=== PATIENT | female | born 1950 | race Caucasian/White ===

== ENCOUNTER 2022-11-11 18:44 | Emergency (ER) | payer MEDICARE, OTHER, SELFPAY ==
[2022-11-11 18:50] VITALS: BP 128/67; PULSE 75; RESP 18; TEMP 37; O2SAT 96; BMI 25.7
--- NOTE | 2022-11-11 19:05 | DI.CT.S_ITS ---
PROCEDURE: CT FACIAL BONES WO CON INDICATIONS: fall, trauma, head, facial, chest injury TECHNIQUE: Noncontrast 2.5 mm thick axial images acquired from the mandible through the frontal sinuses, with coronal and sagittal reformatting. For radiation dose reduction, the following was used: automated exposure control, adjustment of mA and/or kV according to patient size. COMPARISON: [facility], CT, CT CERVICAL SPINE WO CON, 11/11/2022, 19:11. [facility], CT, CT HEAD/BRAIN WO CON, 11/11/2022, 19:11. FINDINGS: Image quality: Excellent. Bones and teeth: Orbital pillai are intact. Sinus pillai show no fracture or deformity. Nasal bones and septum are intact. Visualized portions of the mandible demonstrate no fractures or subluxation. Zygomatic arches are intact. Pterygoid plates are intact. Visualized portions of the skull base and auditory canals are intact. Sinuses: Mild mucosal thickening is seen within the ethmoid air cells and within the maxillary sinuses. No abnormal fluid is seen within the mastoid air cells. Soft tissues: No significant soft tissue abnormality is identified. Vascular: Visualized vascular structures appear normal in the absence of contrast. Bony vascular foramina and canals are intact. IMPRESSION: No displaced fracture is seen. Dictated by: Sanjiv Keller M.D. on 11/11/2022 at 18:32 Approved by: Sanjiv Keller M.D. on 11/11/2022 at 18:33
--- NOTE | 2022-11-11 19:06 | DI.CT.S_ITS ---
PROCEDURE: CT CERVICAL SPINE WO CON INDICATIONS: trauma, fall down stairs, on eliquis TECHNIQUE: Noncontrast 3 mm thick sections acquired from the skull base to the T4 level. Sagittal and coronal reformats were then constructed. For radiation dose reduction, the following was used: automated exposure control, adjustment of mA and/or kV according to patient size. COMPARISON: [facility], CT, CT FACIAL BONES WO CON, 11/11/2022, 19:11. [facility], CT, CT HEAD/BRAIN WO CON, 11/11/2022, 19:11. FINDINGS: Image quality: Excellent. Bones: No fractures or dislocations. Visualized superior ribs are intact. Degenerative changes are seen, including involving the C1-C2 interface anteriorly. Mild disc space narrowing can be seen at C3-C4 and C4-C5. At least moderate disc space narrowing is seen at C5-C6 and C6-C7. Soft tissues: Prevertebral soft tissues are normal in thickness. No paravertebral hematomas. No apical pneumothoraces. IMPRESSION: Negative for acute fracture. Cervical spine degenerative changes are seen, which are worst inferiorly. Dictated by: Sanjiv Keller M.D. on 11/11/2022 at 18:33 Approved by: Sanjiv Keller M.D. on 11/11/2022 at 18:34
--- NOTE | 2022-11-11 19:06 | DI.CT.S_ITS ---
PROCEDURE: CT CHEST ABD PEL W CON INDICATIONS: trauma, fall down stairs, on eliquis TECHNIQUE: After the administration of intravenous contrast, 5 mm thick sections acquired from the lung apices to the symphysis. 2.5 mm thick coronal and sagittal reformats were acquired. Additional 7 mm thick coronal maximum intensity projection (MIP) reformats acquired through the lungs. Optional 10-minute delayed imaging may be performed from the kidneys to the bladder. For radiation dose reduction, the following was used: automated exposure control, adjustment of mA and/or kV according to patient size. COMPARISON: None. FINDINGS: CHEST: Lungs: No pulmonary contusions or lacerations. No acute airspace opacities. No pneumothorax or hemothorax. Mediastinum: No mediastinal hematomas. No pericardial effusion. Thoracic aorta and pulmonary arteries demonstrate normal size and enhancement. No mediastinal or hilar adenopathy. Esophagus is normal in caliber. Small hiatal hernia. Chest wall: No rib fractures. No subcutaneous emphysema. No axillary or supraclavicular adenopathy. ABDOMEN: Solid organs: Liver is normal in size and enhancement, without lacerations. No radiopaque gallstones visualized. Biliary system is non-dilated. Pancreas enhances normally, without transection. Possible few small pancreatic cysts, for example a 5 mm cyst at the pancreatic head (2/72). Spleen is normal in size and enhancement, without lacerations. No adrenal hematomas. Both kidneys enhance normally, without hydronephrosis or lacerations. Right kidney cortical cyst present without suspicious features identified. Peritoneum and bowel: No free fluid or air. no bowel obstruction Nodes and vessels: No retroperitoneal or mesenteric adenopathy. Aorta and inferior vena cava are normal in size and enhancement. PELVIS: Genitourinary: Bladder wall thickness is normal. Miscellaneous: No adenopathy. Bones: Pelvic ring and hip joints appear intact. No definite acute spine fracture identified. L1 vertebral body hemangioma present with probable adjacent Schmorl's node. IMPRESSION: 1. No acute traumatic abnormality identified within the chest, abdomen, or pelvis. 2. A few tiny pancreatic cysts are likely present. Per ACR incidental findings guidelines, imaging follow-up is recommended in 2 years, could be performed sooner or later at clinical discretion. Dictated by: Kareem Kirk M.D. on 11/11/2022 at 20:18 Approved by: Kareem iKrk M.D. on 11/11/2022 at 20:36
--- NOTE | 2022-11-11 19:06 | DI.CT.S_ITS ---
PROCEDURE: CT HEAD/BRAIN WO CON INDICATIONS: trauma, fall down stairs, on eliquis TECHNIQUE: Noncontrast 4.5 mm thick angled axial sections acquired from the foramen magnum to the vertex, with coronal and sagittal reformats. For radiation dose reduction, the following was used: automated exposure control, adjustment of mA and/or kV according to patient size. COMPARISON: [facility], CT, CT CERVICAL SPINE WO CON, 11/11/2022, 19:11. [facility], CT, CT FACIAL BONES WO CON, 11/11/2022, 19:11. FINDINGS: Image quality: Excellent. CSF spaces: Basal cisterns are patent. No extra-axial fluid collections. The ventricles are symmetric in size and shape. Brain: No intracranial bleeds or masses. There is cerebral volume loss for age, with resultant ventricular and sulcal prominence. There are periventricular and deep white matter chronic small vessel ischemic changes. There is intracranial internal carotid artery atherosclerosis. Skull and face: Calvarium and visualized facial bones appear intact, without suspicious lesions. Sinuses: Visualized sinuses and mastoids are clear. IMPRESSION: No acute intracranial hemorrhage is seen. No acute intracranial process is seen. Dictated by: Sanjiv Keller M.D. on 11/11/2022 at 18:31 Approved by: Sanjiv Keller M.D. on 11/11/2022 at 18:31
--- NOTE | 2022-11-11 19:18 | DI.RAD.S_ITS ---
PROCEDURE: XR HAND RT MIN 3V INDICATIONS: Fell down stairs. Pain to R 4th and 5th fingers TECHNIQUE: 3 views of the hand(s) acquired. COMPARISON: None. FINDINGS: Bones: No fractures or dislocations. Carpal bones are normally aligned. No suspicious bony lesions. Soft tissues: No suspicious soft tissue calcifications. IMPRESSION: No acute osseous abnormality. If symptoms persist, follow-up radiographs and/or CT or MRI may be helpful for further evaluation. Dictated by: Kareem Kirk M.D. on 11/11/2022 at 20:36 Approved by: Kareem Kirk M.D. on 11/11/2022 at 20:37
[2022-11-11 19:26] LABS: Add Manual Diff / Slide Review NO; Basophils Absolute Auto 0 /uL (0-100); Basophils Percent Auto 0.5 % (0-2); Eosinophils Absolute Auto 200 /uL (0-450); Eosinophils Percent Auto 2.6 % (2-4); Hematocrit 40.9 % (36-46); Hemoglobin 13.9 g/dL (12.0-16.0); Lymphocytes Absolute Auto 1300 /uL (1100-4500); Lymphocytes Percent Auto 13.9 % (25-40); Mean Corpuscular Hemoglobin 30.2 PG (26-34); Monocytes Absolute Auto 700 /uL (0-900); Monocytes Percent Auto 7.7 % (3-14); Neutrophils Absolute Auto 7300 /uL (1500-7000); Neutrophils Percent Auto 75.3 % (50-75); Platelet Count 271 X10^3/uL (150-400); Red Cell Distribution Width 13.3 % (11.6-14.8); White Blood Cell Count 9.7 X10^3/uL (4.5-11.0)
--- NOTE | 2022-11-11 19:28 | ED_ITS ---
HPI - General Adult General Chief complaint: Fall Stated complaint: Fell on stairs landed/ face & head Blood Thinners Time Seen by Provider: 11/11/22 19:04 Source: patient and family Mode of arrival: Ambulatory History of Present Illness HPI narrative: 71-year-old female nonsmoker with history of atrial fibrillation on blood thinners presents and is activated as a modified trauma secondary to a fall down 3 stairs resulting in head face and anterior chest pain. There is no loss of consciousness and she has full recall of the event. She denies prodromal symptoms such as dizziness, weakness or lightheadedness. She has a mild headach e but denies any nausea or vomiting. She is had no blurred vision. She did not have much if any bleeding from her nose and is able to breathe through both nostrils without difficulty. She denies any malocclusion of her teeth. She does have a laceration of her lower lip but it is not through and through nor does across the vermilion border. She denies any neck pain. She does have some anterior chest pain mostly on the anterior inferior ribs, abdomen is soft and nontender. She denies any upper extremity injury but does have an abrasion to her left lower extremity that was addressed by nurses on [place]. Related Data Previous Rx's Medication Instructions Recorded cyclobenzaprine 10 mg tablet 10 mg PO TID PRN muscle spasm #14 11/11/22 tabs hydrocodone 5 mg-acetaminophen 325 1 tab PO Q4-6H PRN pain #10 tabs 11/11/22 mg tablet ondansetron 4 mg disintegrating 4 mg PO TID-QID PRN nausea and 11/11/22 tablet vomiting #10 tabs Allergies Allergy/AdvReac Type Severity Reaction Status Date / Time No Known Drug Allergies Allergy Verified 11/11/22 19:17 Review of Systems Review of Systems Narrative: GENERAL: See HPI HEENT: See HPI RESPIRATORY: See HPI CARDIOVASCULAR: See HPI GASTROINTESTINAL: Denies nausea, vomiting, abdominal pain, diarrhea, constipation, melena. : Denies dysuria, frequency, incontinence, hematuria, urinary retention. MUSCULOSKELETAL: denies weakness, joint pain, or bony pain SKIN: Denies rash, skin lesions, or other NEUROLOGIC: Denies weakness, headache, numbness, change in speech, confusion, seizures, incoordination. PSYCHIATRIC: No concerning psychosocial issues. 12 point review of systems is negative except for those stated above Patient History Social History Smoking Status: Never smoker Smoking Status: Never smoker alcohol intake frequency: 0-2 drinks per day Substance Use Type: does not use Exam Narrative Exam Narrative: GENERAL: [71] year old patient appears stated age. Well-developed patient, in mild distress. GCS 15 HEAD: Atraumatic. Normocephalic. EYES: Pupils equal round and reactive. No hyphema Extraocular motions intact. No scleral icterus. No injection or drainage. ENT: Nose without bleeding, purulent drainage. Mild bruising on the bridge of the nose, no nasal septal hematoma Throat without erythema, tonsillar hypertrophy or exudate. Airway patent. No hemotympanum. Lower lip laceration, stellate, no muscle involvement, no mirian border, not through and through. No obvious dental injury NECK: Trachea midline. Non tender CARDIOVASCULAR: Regular rate and rhythm without murmurs, gallops, or rubs. Tender along costal margin on L > R, ecchymosis B/L inferior breasts RESPIRATORY: Clear to auscultation. Breath sounds equal bilaterally. No wheezes, rales, or rhonchi. GASTROINTESTINAL: Abdomen soft, non-tender, nondistended. EXTREMITIES: No edema or joint tenderness. BACK: Nontender without deformity or crepitance. No flank tenderness. NEURO: AOx3. SKIN: No rash or erythema of visible areas Initial Vital Signs Initial Vital Signs: Vital Signs Temperature 98.6 F 11/11/22 18:50 Pulse Rate 75 11/11/22 18:50 Respiratory Rate 18 11/11/22 18:50 Blood Pressure 128/67 11/11/22 18:50 Pulse Oximetry 96 11/11/22 18:50 Oxygen Delivery Method Room Air 11/11/22 18:50 Course Orders Ordered: ED Orders 11/11/22 19:10 Complete Blood Count AUTO DIFF Stat Comprehensive Metabolic Panel Stat PTT Partial Thromboplastin Gm Stat Prothrombin Time INR Stat Troponin & CK Cardiac Panel Stat 11/11/22 19:18 XR hand RT min 3V Stat Discontinued Medications Hydrocodone Bitart/Acetaminophen (Hydrocodone/Acet 5/325 Prepack) 1 bottle MISC SEEINSTR ONE Stop: 11/11/22 20:58 Last Admin: 11/11/22 21:14 Dose: 1 bottle Documented By: JOCELYNN Bacitracin (Bacitracin Oint 0.9 Gm Pckt) 1 applic TOP NOW ONE Stop: 11/11/22 20:58 Last Admin: 11/11/22 21:14 Dose: 1 applic Documented By: JOCELYNN Cyclobenzaprine HCl (Cyclobenzaprine 10 Mg Prepack) 1 bottle MISC SEEINSTR ONE Stop: 11/11/22 20:58 Last Admin: 11/11/22 21:14 Dose: 1 bottle Documented By: JOCELYNN Diphtheria/Tetanus/Acell Pertussis (Tet,Diph,Pertuss(Acell),Vac/Pf 0.5 Ml Syringe) 0.5 ml IM .ONCE ONE Stop: 11/11/22 19:08 Last Admin: 11/11/22 20:44 Dose: 0.5 ml Documented By: MARIA DEL CARMEN Ondansetron HCl (Ondansetron 4 Mg Odt Prepack) 1 bottle MISC SEEINSTR ONE Stop: 11/11/22 20:58 Last Admin: 11/11/22 21:14 Dose: 1 bottle Documented By: JOCELYNN Vital Signs Vital signs: Vital Signs - 8 hr 11/11/22 20:08 11/11/22 20:08 11/11/22 20:30 Pulse Rate 67 Respiratory Rate Blood Pressure 104/55 L 113/59 L Pulse Oximetry 96 Oxygen Delivery Method 11/11/22 20:30 Pulse Rate 57 L Respiratory Rate 22 Blood Pressure Pulse Oximetry 96 Oxygen Delivery Method Room Air Medical Decision Making Lab Data 11/11/22 19:10 11/11/22 19:10 Labs: Lab Results 11/11/22 11/11/22 11/11/22 Range/Units 19:10 19:10 19:10 WBC 9.7 (4.5-11.0) X10^3/uL RBC 4.60 (4.0-5.2) X10^6/uL Hgb 13.9 (12.0-16.0) g/dL Hct 40.9 (36-46) % MCV 89.0 (80-100) fL MCH 30.2 (26-34) PG MCHC 34.0 (30-36) % RDW 13.3 (11.6-14.8) % Plt Count 271 (150-400) X10^3/uL Neut % (Auto) 75.3 H (50-75) % Lymph % (Auto) 13.9 L (25-40) % Lucas % (Auto) 7.7 (3-14) % Eos % (Auto) 2.6 (2-4) % Baso % (Auto) 0.5 (0-2) % Neut # (Auto) 7300 H (2518-5679) /uL Lymph # (Auto) 1300 (5216-6848) /uL Lucas # (Auto) 700 (0-900) /uL Eos # (Auto) 200 (0-450) /uL Baso # (Auto) 0 (0-100) /uL PT 12.5 (10.1-12.7) SECONDS INR 1.1 (0.9-1.3) APTT 35 (26-36) SECONDS Sodium 136 L (137-145) mmol/L Potassium 4.1 (3.4-5.1) mmol/L Chloride 101 (98-107) mmol/L Carbon Dioxide 29 (22-32) mmol/L BUN 13 (7-17) mg/dL Creatinine 0.68 (0.52-1.04) mg/dL Estimated GFR > 60 (>60) mL/min BUN/Creatinine Ratio 19.1 (6-22) Glucose 92 (80-110) mg/dL Calcium 9.0 (8.4-10.2) mg/dL Total Bilirubin 0.7 (0.2-1.3) mg/dL AST 38 H (14-36) IU/L ALT 29 (<35) IU/L Alkaline Phosphatase 75 (38-126) U/L Total Creatine Kinase (30-135) U/L CK-MB (CK-2) CK-MB (CK-2) Rel Index Troponin I (0.01-0.034) ng/mL Total Protein 6.7 (6.3-8.2) g/dL Albumin 4.2 (3.5-5.0) g/dL Globulin 2.5 (1.7-4.1) g/dL Albumin/Globulin Ratio 1.7 (1.0-2.8) / Range/Units 19:10 WBC (4.5-11.0) X10^3/uL RBC (4.0-5.2) X10^6/uL Hgb (12.0-16.0) g/dL Hct (36-46) % MCV (80-100) fL MCH (26-34) PG MCHC (30-36) % RDW (11.6-14.8) % Plt Count (150-400) X10^3/uL Neut % (Auto) (50-75) % Lymph % (Auto) (25-40) % Lucas % (Auto) (3-14) % Eos % (Auto) (2-4) % Baso % (Auto) (0-2) % Neut # (Auto) (4425-4441) /uL Lymph # (Auto) (0623-3743) /uL Lucas # (Auto) (0-900) /uL Eos # (Auto) (0-450) /uL Baso # (Auto) (0-100) /uL PT (10.1-12.7) SECONDS INR (0.9-1.3) APTT (26-36) SECONDS Sodium (137-145) mmol/L Potassium (3.4-5.1) mmol/L Chloride (98-107) mmol/L Carbon Dioxide (22-32) mmol/L BUN (7-17) mg/dL Creatinine (0.52-1.04) mg/dL Estimated GFR (>60) mL/min BUN/Creatinine Ratio (6-22) Glucose (80-110) mg/dL Calcium (8.4-10.2) mg/dL Total Bilirubin (0.2-1.3) mg/dL AST (14-36) IU/L ALT (<35) IU/L Alkaline Phosphatase (38-126) U/L Total Creatine Kinase 66 (30-135) U/L CK-MB (CK-2) TNP CK-MB (CK-2) Rel Index TNP Troponin I < 0.012 (0.01-0.034) ng/mL Total Protein (6.3-8.2) g/dL Albumin (3.5-5.0) g/dL Globulin (1.7-4.1) g/dL Albumin/Globulin Ratio (1.0-2.8) MDM Narrative Medical decision making narrative: [71] year old patient presents with injuries due to fall down three stairs, modified trauma Multiple etiologies for patient's symptoms considered including, but not limited to: [ICH , rib fractures, chest trauma vs. other] No prior charts available in our EMR Primary Historian: patient Labs reviewed and interpreted by myself: no leukocytosis or left shift, no signs of anemia, electrolytes and renal function within normal, cardiac enzymes within normal Imaging reviewed:Multiple CTs including head, facial bones, C-spine, chest abdomen and pelvis unremarkable without significant findings. Patient's symptoms improved over duration of stay with above-stated therapies. Findings and discharge diagnosis discussed with patient/family followed by verbalization of understanding Return precautions discussed with patient/family whom verbalize understanding of diagnosis and plan Discharge Plan Departure Patient Disposition: Home Clinical Impression: Laceration of lip, Abrasion of skin, Chest wall contusion Instructions: DI for Trauma Activity Restrictions/Additional Instructions: *You have been diagnosed with [minor injuries related to trauma. As we discussed your history and physical exam, labs and imaging are very reassuring.] *What to do: *Please continue to take your regular medications as directed. [x ] New medication prescriptions sent to your pharmacy: [[facility] ] [ ] New medication written as a paper prescription [ ] No new medications given *Please follow up with your primary care provider in 2-3 days, call for an appointment. Let them know you were seen in the Emergency Department and that we ask that you be seen in follow up. We will electronically transmit a record of today's note if your PCP is in our system *If you do not have a primary care provider please contact the [facility] Resource line at [phone]. They will ask some questions about your medical history and help get you set up with a doctor in the community. *Return to Emergency Department if you should have any new, worsening or concerning symptoms, such as [fever greater than 101 F, shaking chills, worsening pain, persistent vomiting or other bothersome symptoms] You have been prescribed a short course of narcotic medications. These are potentially dangerous and addictive medications that should be used carefully. While on these medications you cannot drive or operate heavy machinery. Additionally, you cannot sign legal documents or perform any duties such as this. 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 Please understand that we cannot provide further refills of narcotics or controlled substances through the ED and your pain management will need to be through your Primary Care Provider Prescriptions: New cyclobenzaprine 10 mg tablet 10 mg PO TID PRN (Reason: muscle spasm) Qty: 14 0RF hydrocodone-acetaminophen 5-325 mg tablet 1 tab PO Q4-6H PRN (Reason: pain) Qty: 10 0RF ondansetron 4 mg tablet,disintegrating 4 mg PO TID-QID PRN (Reason: nausea and vomiting) Qty: 10 0RF Referrals: Javier Mcnally DO [Primary Care Provider] - Stand Alone Forms: Patient Portal/API
[2022-11-11 19:38] LABS: INR 1.1 (0.9-1.3); Prothrombin Time 12.5 SECONDS (10.1-12.7)
[2022-11-11 19:41] LABS: PTT Partial Thromboplastin Tim 35 SECONDS (26-36)
[2022-11-11 19:42] VITALS: O2SAT 98
[2022-11-11 19:43] VITALS: BP 113/58; PULSE 63; O2SAT 97
[2022-11-11 19:44] LABS: Creatine Kinase 66 U/L (30-135)
[2022-11-11 19:45] LABS: Alanine Aminotransferase 29 IU/L (<35); Albumin 4.2 g/dL (3.5-5.0); Albumin Globulin Ratio 1.7 (1.0-2.8); Alkaline Phosphatase 75 U/L (38-126); Aspartate Aminotransferase 38 IU/L (14-36); BUN Creatinine Ratio 19.1 (6-22); Bilirubin Total 0.7 mg/dL (0.2-1.3); Blood Urea Nitrogen 13 mg/dL (7-17); Carbon Dioxide 29 mmol/L (22-32); Chloride 101 mmol/L (98-107); Estimated Glomerular Filt Rate > 60 mL/min (>60); Globulin 2.5 g/dL (1.7-4.1); Glucose 92 mg/dL (80-110); HEMOLYSIS < 15 (0-50); Potassium 4.1 mmol/L (3.4-5.1); Sodium 136 mmol/L (137-145); Total Protein 6.7 g/dL (6.3-8.2)
[2022-11-11 19:56] LABS: Troponin I < 0.012 ng/mL (0.01-0.034)
[2022-11-11 20:00] VITALS: PULSE 63; O2SAT 97
[2022-11-11 20:08] VITALS: BP 104/55; PULSE 67; O2SAT 96
--- NOTE | 2022-11-11 20:09 | PC.NURSE ---
Pt has bilateral bruising to her lower breasts.
[2022-11-11 20:30] VITALS: BP 113/59; PULSE 57; RESP 22; O2SAT 96
[2022-11-11] MEDS: TET,DIPH,PERTUSS(ACELL),VAC/PF 0.5 ML SYRINGE IM (20:44)
[2022-11-11] MEDS: ONDANSETRON 4 MG ODT PREPACK 1 BOTTLE MISC (21:14)
[2022-11-11] MEDS: HYDROCODONE/ACET 5/325 PREPACK 1 BOTTLE MISC (21:14)
[2022-11-11] MEDS: BACITRACIN OINT 0.9 GM PCKT 1 APPLIC TOP (21:14)
[2022-11-11] MEDS: CYCLOBENZAPRINE 10 MG PREPACK 1 BOTTLE MISC (21:14)
== END 2022-11-11 21:25 | disposition home or self-care (01) ==
PROVIDERS: Emergency Provider Emergency Medicine; PCP Family Medicine
DX: S01.511A Laceration without foreign body of lip, initial encounter (principal); S20.219A Contusion of unspecified front wall of thorax, initial encounter; M79.644 Pain in right finger(s); R07.9 Chest pain, unspecified; I48.91 Unspecified atrial fibrillation; Z79.01 Long term (current) use of anticoagulants; W10.9XXA Fall (on) (from) unspecified stairs and steps, initial encounter; Z23 Encounter for immunization
CPT/HCPCS: 70450; 70486; 71260; 72125; 73130; 74177; 80053; 82550; 84484; 85025; 85610; 85730; 90471; 99284; 90715

== ENCOUNTER → 2023-07-28 12:41 | Outpatient (CLI) | payer MEDICARE, OTHER, SELFPAY ==
[2023-07-28 14:12] LABS: Magnesium 1.9 mg/dL (1.6-2.3)
== END ==
PROVIDERS: PCP Family Medicine; Referring Provider Internal Medicine Cardiovascular Disease; Visit Provider Internal Medicine Cardiovascular Disease
DX: I48.0 Paroxysmal atrial fibrillation (principal)
CPT/HCPCS: 36415; 83735

== ENCOUNTER → 2024-01-22 14:04 | Outpatient (CLI) | payer MEDICARE, OTHER, SELFPAY ==
[2024-01-22 14:45] LABS: Add Manual Diff / Slide Review NO; Basophils Absolute Auto 0 /uL (0-100); Basophils Percent Auto 0.5 % (0-2); Eosinophils Absolute Auto 300 /uL (0-450); Eosinophils Percent Auto 5.9 % (2-4); Hematocrit 40.3 % (36-46); Hemoglobin 13.5 g/dL (12.0-16.0); Lymphocytes Absolute Auto 1400 /uL (1100-4500); Lymphocytes Percent Auto 27.3 % (25-40); Mean Corpuscular HGB Conc 33.4 % (30-36); Mean Corpuscular Hemoglobin 29.4 PG (26-34); Mean Corpuscular Volume 88.2 fL (80-100); Monocytes Absolute Auto 500 /uL (0-900); Monocytes Percent Auto 9.6 % (3-14); Neutrophils Absolute Auto 2900 /uL (1500-7000); Neutrophils Percent Auto 56.7 % (50-75); Platelet Count 275 X10^3/uL (150-400); Red Blood Cell Count 4.57 X10^6/uL (4.0-5.2); Red Cell Distribution Width 13.1 % (11.6-14.8); White Blood Cell Count 5.2 X10^3/uL (4.5-11.0)
[2024-01-22 15:08] LABS: BUN Creatinine Ratio 19.7 (6-22); Blood Urea Nitrogen 13 mg/dL (7-17); Calcium 9.1 mg/dL (8.4-10.2); Carbon Dioxide 27 mmol/L (22-32); Chloride 106 mmol/L (98-107); Estimated Glomerular Filt Rate > 60 mL/min (>60); Glucose 97 mg/dL (80-110); HEMOLYSIS < 15 (0-50); Potassium 4.2 mmol/L (3.4-5.1); Sodium 138 mmol/L (137-145)
== END ==
PROVIDERS: PCP Physician Assistant; Referring Provider Internal Medicine Cardiovascular Disease; Visit Provider Internal Medicine Cardiovascular Disease
DX: I48.0 Paroxysmal atrial fibrillation (principal)
CPT/HCPCS: 36415; 80048; 85025

== ENCOUNTER 2024-03-02 14:03 | Emergency (ER) | payer MEDICARE, OTHER, SELFPAY ==
[2024-03-02] VITALS (8 sets, daily range): BP systolic 103–117; BP diastolic 56–73; PULSE 50–84; RESP 12–23; TEMP 36.7–37.1; O2SAT 95–97
--- NOTE | 2024-03-02 14:08 | DI.CT.S_ITS ---
PROCEDURE: CT STROKE INDICATIONS: Positive BE-FAST, Stroke symptoms TECHNIQUE: Noncontrast 4.5 mm thick angled axial sections acquired from the foramen magnum to the vertex, with coronal reformats. For radiation dose reduction, the following was used: automated exposure control, adjustment of mA and/or kV according to patient size. COMPARISON: None. FINDINGS: Image quality: Diagnostic CSF spaces: Basal cisterns are patent. Lateral ventricles are symmetric. Volume: Vascular calcifications. Periventricular white matter disease is commonly seen with chronic microangiopathy. Volume loss is present. These findings are moderate Brain: No gross loss of frazier-white differentiation. No acute hemorrhage identified Craniofacial structures: No significant paranasal sinus opacity IMPRESSION: No acute intracranial hemorrhage Called to Dr. Lucio. This study fulfills neurological imaging criteria for inclusion or exclusion of acute stroke therapies based on available published neurological imaging guidelines. Dictated by: Inocente Hilliard M.D. on 03/02/2024 at 14:24 Approved by: Inocente Hilliard M.D. on 03/02/2024 at 14:26
--- NOTE | 2024-03-02 14:08 | DI.RAD.S_ITS ---
PROCEDURE: XR CHEST 1V INDICATIONS: Possible stroke TECHNIQUE: One view of the chest was acquired. COMPARISON: [facility] ([facility] [facility]), CR, XR RIBS RT MIN 3V W CXR 1V, 11/21/2022, 14:43. FINDINGS: Surgical changes and devices: None. Lungs and pleura: No dense consolidation or pleural effusion Mediastinum: Normal heart size Bones and chest wall: Degenerative changes IMPRESSION: Limited single view radiograph without acute abnormality. Dictated by: Inocente Hilliard M.D. on 03/02/2024 at 14:26 Approved by: Inocente Hilliard M.D. on 03/02/2024 at 14:27
--- NOTE | 2024-03-02 14:14 | DI.CT.S_ITS ---
PROCEDURE: CT ANGIO HEAD AND NECK INDICATIONS: blurred vision,LKW 1030 TECHNIQUE: After the administration of intravenous contrast, 1 mm thick sections acquired from the aortic arch through the [place] of [place]. 3-dimensional sccxblr-cbsqcskqb-khyrartyva (MIP) and/or volume rendering reformats were acquired of the central intracranial vasculature and neck separately. For radiation dose reduction, the following was used: automated exposure control, adjustment of mA and/or kV according to patient size. COMPARISON: [facility], CT, CT STROKE, 03/02/2024, 14:12. FINDINGS: Image quality: Diagnostic. BRAIN: Please refer to same day CT of the head. HEAD CT ANGIOGRAPHY: Anterior circulation: Intracranial internal carotid arteries are normal in size and flow. The flow within the paired anterior cerebral arteries is normal and symmetric. The flow within the middle cerebral arteries is normal and symmetric. The anterior communicating artery is seen. No aneurysms are seen. Posterior circulation: Visualized portions of the vertebral arteries demonstrate normal caliber, and join to form a normal appearing basilar artery. Flow within the posterior cerebral arteries is normal and symmetric. No aneurysms are seen. NECK CT ANGIOGRAPHY: Carotid system: The great vessels demonstrate a conventional anatomy as they arise from the aortic arch. The origins of the common carotid arteries appear patent. The common carotid arteries demonstrate normal caliber and courses. The bifurcation regions are both widely patent. The internal carotid arteries demonstrate normal calibers and courses. Posterior circulation: The origins of the vertebral arteries both appear widely patent. The more superior extracranial portions of both vertebral arteries also demonstrate normal courses and calibers. They join to form a normal appearing basilar artery. Soft tissues: Visualized neck soft tissues demonstrate no suspicious abnormalities. Bones: No suspicious bony lesions. Visualized cervical spine appears normally aligned. Degenerative changes of the spine. IMPRESSION: No significant intracranial arterial abnormality is seen. No significant abnormality is seen within the arteries of the neck. Any quantitative measurements of stenosis were performed using NASCET criteria. Dictated by: Chan Horn M.D. on 03/02/2024 at 15:17 Approved by: Chan Horn M.D. on 03/02/2024 at 15:26
--- NOTE | 2024-03-02 14:26 | EKG_ITS ---
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
[2024-03-02 14:29] LABS: INR 0.9 (0.9-1.3); Prothrombin Time 10.8 SECONDS (9.4-12.5)
[2024-03-02 14:32] LABS: Add Manual Diff / Slide Review NO; Basophils Absolute Auto 0 /uL (0-100); Basophils Percent Auto 0.6 % (0-2); Eosinophils Absolute Auto 200 /uL (0-450); Eosinophils Percent Auto 3.3 % (2-4); Hemoglobin 13.7 g/dL (12.0-16.0); Lymphocytes Absolute Auto 2000 /uL (1100-4500); Lymphocytes Percent Auto 26.8 % (25-40); Mean Corpuscular HGB Conc 33.5 % (30-36); Mean Corpuscular Hemoglobin 29.7 PG (26-34); Mean Corpuscular Volume 88.6 fL (80-100); Monocytes Absolute Auto 700 /uL (0-900); Monocytes Percent Auto 9.3 % (3-14); Neutrophils Absolute Auto 4500 /uL (1500-7000); PTT Partial Thromboplastin Tim 38 SECONDS (25.1-36.5); Platelet Count 302 X10^3/uL (150-400); Red Blood Cell Count 4.63 X10^6/uL (4.0-5.2); Red Cell Distribution Width 13.4 % (11.6-14.8); White Blood Cell Count 7.5 X10^3/uL (4.5-11.0)
[2024-03-02 14:34] LABS: Alanine Aminotransferase 27 IU/L (<35); Albumin 4.2 g/dL (3.5-5.0); Albumin Globulin Ratio 1.6 (1.0-2.8); Alkaline Phosphatase 76 U/L (38-126); Aspartate Aminotransferase 31 IU/L (14-36); Bilirubin Total 0.7 mg/dL (0.2-1.3); Blood Urea Nitrogen 14 mg/dL (7-17); Calcium 9.5 mg/dL (8.4-10.2); Carbon Dioxide 28 mmol/L (22-32); Chloride 103 mmol/L (98-107); Creatine Kinase 120 U/L (30-135); Estimated Glomerular Filt Rate > 60 mL/min (>60); Globulin 2.6 g/dL (1.7-4.1); Glucose 119 mg/dL (80-110); HEMOLYSIS < 15 (0-50); Magnesium 2.2 mg/dL (1.6-2.3); Potassium 3.8 mmol/L (3.4-5.1); Sodium 138 mmol/L (137-145); Total Protein 6.8 g/dL (6.3-8.2)
--- NOTE | 2024-03-02 14:40 | ED_ITS ---
HPI - Neuro Symptoms/Deficit General Chief Complaint: Neuro Symptoms/Deficit Stated Complaint: cardiac issue sent by cardiology Time Seen by Provider: 03/02/24 14:40 Source: patient Mode of arrival: Ambulatory Limitations: no limitations History of Present Illness HPI Narrative: 73-year-old female with history of atrial fibrillation recently stopped her flecainide after an ablation, hypertension and asthma. Patient states she was feeling generally little bit unwell for the past several days but today noticed her left eye seemed more fatigued had some burning discomfort little bit of headache with her left for a period of time she see to images but not with her right eye. Patient states she has had some issues in the past but usually her I felt more fatigued but did not notice double vision in the past. Patient states she can have little bit of mild headache no fevers or chills. No numbness tingling or weakness. No issues with speech. Little bit of mild bilateral frontal headache. No chest pain or shortness of breath. She notes her asthma has been acting up recently she just completed a 10 day course of prednisone. Had some mild nausea no vomiting. No issues with bowel movements or urination. Patient states vision changes have resolved. She had notices while driving between 10 and 10 30 this morning but states she might be off a little bit on her times. She has been off her Eliquis for a couple days, she is currently moving and is not sure where her prescription is. She did have her flecainide stopped today by her forensic science examiner at her follow up Cardiology appointment. Patient notes she had an ablation on the [address] Gutiérrez. She has not had any palpitations or AFib she is aware of. They stopped her flecainide because she has felt a little bit under the weather. She denies other surgeries. She has had a retinal tear on the right but not left. She does have known eye disease and states her prescriptions little bit stronger on the left than the right at baseline. She follows with Dr. Tamika fowler for Ophthalmology. No known drug allergies. Remote history of tobacco, no alcohol no recreational drugs. Needs to reestablish with a primary care locally she moved here from [place] to [facility]. On Anticoagulants: Yes (eliquis) Related Data Home Medications Medication Instructions Recorded Confirmed acyclovir 400 mg tablet 400 mg PO DAILY PRN 02/17/24 02/17/24 apixaban 5 mg tablet (Eliquis) 5 mg PO BID 02/17/24 02/17/24 diltiazem HCl 60 mg 60 mg PO BID 02/17/24 02/17/24 capsule,extended release 12 hr flecainide 50 mg tablet 50 mg PO BID 02/17/24 02/17/24 pantoprazole 40 mg tablet,delayed 40 mg PO DAILY 02/17/24 02/17/24 release Previous Rx's Medication Instructions Recorded albuterol sulfate 90 mcg/actuation 2 puff inhalation Q4-6H PRN 02/17/24 aerosol inhaler shortness of breath or wheezing #8.5 grams beclomethasone dipropionate 80 1 inh inhalation BID #10.6 grams 02/17/24 mcg/actuation HFA breath activated aerosol (Qvar RediHaler) prednisone 10 mg tablet 10 mg PO DAILY #4 tabs 02/26/24 apixaban 5 mg tablet (Eliquis) 5 mg PO BID #60 tabs 03/02/24 Allergies Allergy/AdvReac Type Severity Reaction Status Date / Time No Known Drug Allergies Allergy Verified 03/02/24 14:13 Review of Systems Review of Systems ROS Unobtainable: All systems reviewed & are unremarkable except as noted in HPI and below Hematologic/Lymphatic On Anticoagulants: Yes (eliquis) Patient History Social History Smoking Status: Never smoker Smoking Status: Never smoker alcohol intake frequency: 0-2 drinks per day Substance Use Type: does not use Exam Narrative Exam Narrative: GEN: well nourished, well appearing female, alert and oriented x 3, patient appears to be in mild distress. HEENT: Atraumatic, pupils are equal round reactive to light, extraocular movements are intact, nares are clear, TMs are clear with no fluid, there is no conjunctival pallor. Throat is clear without any exudates, erythema, tonsillar enlargement or uvular deviation, rash, erythema or skin changes. Visual acuity: right [20/50], left 20/70 with correction. IOP: Right unable to obtain mm Hg, Left 14 mm Hg General: no globe trauma Eyelids: normal inspection, eyelids everted for exam on left. Conjunctiva/Sclera: normal inspection Corneas: normal inspection, examined with fluroscein on left, patient has some mild punctate uptake over the sclera but nothing over the cornea no ulcerations lacerations or abrasions.. EOM: intact, no palsy/entrapment Pupils: PERRL, normal accomadation, pupil normal Anterior Chambers: normal inspection, no hypema Posterior: normal fundoscopic on bilaterally HEART: Regular rate and rhythm without murmur, clicks, rubs. No carotid bruits, pulses are equal in upper and lower extremities LUNGS:Lungs clear to auscultation, no wheezes, rales, crackles, chest moves symmetrically ABD:bowel sounds normal, soft, non-tender, no guarding, rebound, rigidity, no masses noted, no hepatosplenomegaly :No CVA tenderness MSCL: Non-tender, no muscle atrophy, muscles strength 5/5 upper and lower extremities, full range of motion, normal gait NEURO:CN 2-12 intact, sensation normal, finger nose finger test normal, heel wilson test normal. Initial Vital Signs Initial Vital Signs: Vital Signs Temperature 98.1 F 03/02/24 14:04 Pulse Rate 84 03/02/24 14:04 Respiratory Rate 17 03/02/24 14:04 Blood Pressure 115/58 L 03/02/24 14:04 Pulse Oximetry 97 03/02/24 14:04 Oxygen Delivery Method Room Air 03/02/24 14:04 Course Orders Ordered: ED Orders 03/02/24 14:08 CT Stroke Stat XR chest 1V Stat EKG-12 Lead Stat 03/02/24 14:10 Complete Blood Count AUTO DIFF Stat Comprehensive Metabolic Panel Stat Magnesium Stat PTT Partial Thromboplastin Gm Stat Prothrombin Time INR Stat Troponin & CK Cardiac Panel Stat 03/02/24 14:14 CT angio head and neck Stat Discontinued Medications Apixaban (Apixaban 5 Mg Tablet) 5 mg PO NOW ONE Stop: 03/02/24 15:55 Last Admin: 03/02/24 16:00 Dose: 5 mg Documented By: TENZIN Fluorescein Sodium (Fluorescein 1 Mg Strip) 1 mg EYE-BOTH NOW ONE Stop: 03/02/24 14:54 Last Admin: 03/02/24 15:07 Dose: 1 mg Documented By: RUSSELL Ondansetron HCl (Ondansetron 4 Mg/2 Ml Inj) 4 mg IV NOW PRN PRN Reason: Nausea And Vomiting Ondansetron HCl (Ondansetron 4 Mg Odt) 4 mg SL NOW PRN PRN Reason: Nausea And Vomiting Proparacaine HCl (Proparacaine 0.5% Ophth Tomasa) 1 drops EYE-BOTH NOW ONE Stop: 03/02/24 14:54 Last Admin: 03/02/24 15:07 Dose: 1 drops Documented By: RUSSELL Vital Signs Vital signs: Vital Signs - 8 hr 03/02/24 14:04 03/02/24 14:23 03/02/24 14:25 Temperature 98.1 F Pulse Rate 84 56 L 52 L Respiratory Rate 17 12 Blood Pressure 115/58 L Pulse Oximetry 97 97 97 Oxygen Delivery Method Room Air Room Air 03/02/24 14:25 03/02/24 14:33 03/02/24 14:35 Temperature Pulse Rate 60 Respiratory Rate Blood Pressure 106/60 117/56 L Pulse Oximetry 96 Oxygen Delivery Method 03/02/24 14:35 03/02/24 15:00 03/02/24 15:00 Temperature Pulse Rate 52 L 51 L Respiratory Rate 20 23 Blood Pressure 103/61 Pulse Oximetry 96 95 Oxygen Delivery Method 03/02/24 15:30 03/02/24 15:30 03/02/24 16:00 Temperature 98.8 F Pulse Rate 52 L Respiratory Rate 23 Blood Pressure 113/65 117/73 Pulse Oximetry 96 Oxygen Delivery Method Room Air 03/02/24 16:00 Temperature Pulse Rate 50 L Respiratory Rate 14 Blood Pressure Pulse Oximetry 97 Oxygen Delivery Method MDM - Neuro Symptoms/Deficit Lab Data 03/02/24 14:10 03/02/24 14:10 Labs: Lab Results 03/02/24 Range/Units 14:10 WBC 7.5 (4.5-11.0) X10^3/uL RBC 4.63 (4.0-5.2) X10^6/uL Hgb 13.7 (12.0-16.0) g/dL Hct 41.0 (36-46) % MCV 88.6 (80-100) fL MCH 29.7 (26-34) PG MCHC 33.5 (30-36) % RDW 13.4 (11.6-14.8) % Plt Count 302 (150-400) X10^3/uL Neut % (Auto) 60.0 (50-75) % Lymph % (Auto) 26.8 (25-40) % Ida % (Auto) 9.3 (3-14) % Eos % (Auto) 3.3 (2-4) % Baso % (Auto) 0.6 (0-2) % Neut # (Auto) 4500 (4078-2947) /uL Lymph # (Auto) 2000 (3713-5253) /uL Ida # (Auto) 700 (0-900) /uL Eos # (Auto) 200 (0-450) /uL Baso # (Auto) 0 (0-100) /uL PT 10.8 (9.4-12.5) SECONDS INR 0.9 (0.9-1.3) APTT 38 H (25.1-36.5) SECONDS Sodium 138 (137-145) mmol/L Potassium 3.8 (3.4-5.1) mmol/L Chloride 103 (98-107) mmol/L Carbon Dioxide 28 (22-32) mmol/L BUN 14 (7-17) mg/dL Creatinine 0.70 (0.52-1.04) mg/dL Estimated GFR > 60 (>60) mL/min BUN/Creatinine Ratio 20.0 (6-22) Glucose 119 H (80-110) mg/dL Calcium 9.5 (8.4-10.2) mg/dL Magnesium 2.2 (1.6-2.3) mg/dL Total Bilirubin 0.7 (0.2-1.3) mg/dL AST 31 (14-36) IU/L ALT 27 (<35) IU/L Alkaline Phosphatase 76 (38-126) U/L Total Creatine Kinase 120 (30-135) U/L Troponin I < 0.012 (0.01-0.034) ng/mL Total Protein 6.8 (6.3-8.2) g/dL Albumin 4.2 (3.5-5.0) g/dL Globulin 2.6 (1.7-4.1) g/dL Albumin/Globulin Ratio 1.6 (1.0-2.8) Point of Care Testing Glucose POC [address] scan - head: Radiologist's Impression: CT results were called to myself by Dr. Hilliard negative for acute change CTA - brain/neck: Radiologist's Impression: [address] [address] [address] Scan Report Signed Patient: Camden Oglesby MR#: [id number] : 1950 Acct:[id number] Age/Sex: 73 / F Date of Service: 03/02/24 Loc: ED Accession Number: [id number] Procedure: CT angio head and neck Ordering Provider: Yue Lucio D.O. PROCEDURE: CT ANGIO HEAD AND NECK INDICATIONS: blurred vision,LKW 1030 TECHNIQUE: After the administration of intravenous contrast, 1 mm thick sections acquired from the aortic arch through the Pansey of [place]cantar. 3-dimensional ibdnrpa-jsqcpmpfa-tvxsrlduxw (MIP) and/or volume rendering reformats were acquired of the central intracranial vasculature and neck separately. For radiation dose reduction, the following was used: automated exposure control, adjustment of mA and/or kV according to patient size. COMPARISON: [facility], CT, CT STROKE, 03/02/2024, 14:12. FINDINGS: Image quality: Diagnostic. BRAIN: Please refer to same day CT of the head. HEAD CT ANGIOGRAPHY: Anterior circulation: Intracranial internal carotid arteries are normal in size and flow. The flow within the paired anterior cerebral arteries is normal and symmetric. The flow within the middle cerebral arteries is normal and symmetric. The anterior communicating artery is seen. No aneurysms are seen. Posterior circulation: Visualized portions of the vertebral arteries demonstrate normal caliber, and join to form a normal appearing basilar artery. Flow within the posterior cerebral arteries is normal and symmetric. No aneurysms are seen. NECK CT ANGIOGRAPHY: Carotid system: The great vessels demonstrate a conventional anatomy as they arise from the aortic arch. The origins of the common carotid arteries appear patent. The common carotid arteries demonstrate normal caliber and courses. The bifurcation regions are both widely patent. The internal carotid arteries demonstrate normal calibers and courses. Posterior circulation: The origins of the vertebral arteries both appear widely patent. The more superior extracranial portions of both vertebral arteries also demonstrate normal courses and calibers. They join to form a normal appearing basilar artery. Soft tissues: Visualized neck soft tissues demonstrate no suspicious abnormalities. Bones: No suspicious bony lesions. Visualized cervical spine appears normally aligned. Degenerative changes of the spine. IMPRESSION: No significant intracranial arterial abnormality is seen. No significant abnormality is seen within the arteries of the neck. Any quantitative measurements of stenosis were performed using NASCET criteria. Dictated by: Chan Horn M.D. on 03/02/2024 at 15:17 Approved by: Chan Horn M.D. on 03/02/2024 at 15:26 Chest x-ray: Radiologist's Impression: [address] [address] [address] Scan Report Signed Patient: Camden Oglesby MR#: [id number] : 1950 Acct:[id number] Age/Sex: 73 / F Date of Service: 03/02/24 Loc: ED Accession Number: [id number] Procedure: CT angio head and neck Ordering Provider: Yue Lucio D.O. PROCEDURE: CT ANGIO HEAD AND NECK INDICATIONS: blurred vision,LKW 1030 TECHNIQUE: After the administration of intravenous contrast, 1 mm thick sections acquired from the aortic arch through the Pansey of Alcantar. 3-dimensional ushzgrj-hzsdjezju-lxovxnpzzi (MIP) and/or volume rendering reformats were acquired of the central intracranial vasculature and neck separately. For radiation dose reduction, the following was used: automated exposure control, adjustment of mA and/or kV according to patient size. COMPARISON: [facility], CT, CT STROKE, 03/02/2024, 14:12. FINDINGS: Image quality: Diagnostic. BRAIN: Please refer to same day CT of the head. HEAD CT ANGIOGRAPHY: Anterior circulation: Intracranial internal carotid arteries are normal in size and flow. The flow within the paired anterior cerebral arteries is normal and symmetric. The flow within the middle cerebral arteries is normal and symmetric. The anterior communicating artery is seen. No aneurysms are seen. Posterior circulation: Visualized portions of the vertebral arteries demonstrate normal caliber, and join to form a normal appearing basilar artery. Flow within the posterior cerebral arteries is normal and symmetric. No aneurysms are seen. NECK CT ANGIOGRAPHY: Carotid system: The great vessels demonstrate a conventional anatomy as they arise from the aortic arch. The origins of the common carotid arteries appear patent. The common carotid arteries demonstrate normal caliber and courses. The bifurcation regions are both widely patent. The internal carotid arteries demonstrate normal calibers and courses. Posterior circulation: The origins of the vertebral arteries both appear widely patent. The more superior extracranial portions of both vertebral arteries also demonstrate normal courses and calibers. They join to form a normal appearing basilar artery. Soft tissues: Visualized neck soft tissues demonstrate no suspicious abnormalities. Bones: No suspicious bony lesions. Visualized cervical spine appears normally aligned. Degenerative changes of the spine. IMPRESSION: No significant intracranial arterial abnormality is seen. No significant abnormality is seen within the arteries of the neck. Any quantitative measurements of stenosis were performed using NASCET criteria. Dictated by: Chan Horn M.D. on 03/02/2024 at 15:17 Approved by: Chan Horn M.D. on 03/02/2024 at 15:26 ECG Data Attestation: I personally reviewed and interpreted this ECG as follows: Interpretation: Sinus bradycardia like deficits deviation left bundle-branch rate of 52 DE 164 QRS of 124 QTC 396. MDM Narrative Medical decision making narrative: 73-year-old female with period of diplopia that patient appreciated being isolated to the left eye had resolved upon evaluation. Patient has a little bit of change in visual acuity left compared to right. Little bit of burning and irritation to her eye as well no other acute neurologic changes. Patient had gone to a cardiology appointment and been referred here for evaluation for stroke. NIH is 0. Head CT is negative, CT angio shows no acute change. Chest x-ray shows no acute change EKG shows sinus bradycardia with a left axis deviation and left bundle-branch block. Labs show white count of 7.5 hemoglobin of 13 platelets of 302. Coags are negative electrolytes are appropriate BUN 14 creatinine 0.7 glucose 119 calcium 9.5 otherwise normal LFTs troponins less than 0.012. Patient has been off her anticoagulants for a couple days because she moved and has not been able to find it. Did have her flecainide stopped because she had ablation a month ago and has been without any issues. Patient's visual exam does show a little bit of decreased show acute and left compared to right she notes it has been longstanding like that but this was with her glasses. Patient has a little bit of irritation to the sclera no obvious conjunctivitis pressure is appropriate, discussed with patient would like for her to follow up with Ophthalmology. She does see them locally. Goal is to follow up within the next 12-24 hours. Patient states she will call for an appointment. Discussed double vision is likely to be from conjunctivitis so should have an eye exam. Possibility of TIA secondary to diplopia but seems less likely. Patient has been off of her Eliquis she asked for a single dose here and we will give a prescription as she is unsure if that has been refilled by her doctor's office or if she has lost her bottle during her move. Discharge Plan Departure Patient Disposition: Home Clinical Impression: Diplopia Instructions: DI for Double Vision Activity Restrictions/Additional Instructions: Please follow up with Ophthalmology for recheck, call Dr. Fowler's office this afternoon or in the morning for follow up in the next [address], CT angio and labs are overall reassuring. Please continue your home Eliquis, printed prescription is included. Please return for new or worsening symptoms, severe headaches, changes in the eye such as drainage, sudden vision changes, vision loss, recurrent double vision, persistent vomiting, new numbness tingling or weakness of your extremities, difficulty with speech or other new or concerning changes. Prescriptions: New Eliquis 5 mg tablet 5 mg PO BID Qty: 60 0RF No Action prednisone 10 mg tablet 10 mg PO DAILY Qty: 4 0RF Eliquis 5 mg tablet 5 mg PO BID diltiazem HCl 60 mg capsule,extended release 12 hr 60 mg PO BID flecainide 50 mg tablet 50 mg PO BID pantoprazole 40 mg tablet,delayed release (DR/EC) 40 mg PO DAILY acyclovir 400 mg tablet 400 mg PO DAILY PRN Qvar RediHaler 80 mcg/actuation HFA aerosol breath activated 1 inh inhalation BID Qty: 10.6 0RF albuterol sulfate 90 mcg/actuation HFA aerosol inhaler 2 puff inhalation Q4-6H PRN (Reason: shortness of breath or wheezing) Qty: 8.5 0RF Referrals: Tiana Dubon PA-C [Primary Care Provider] - Stand Alone Forms: Patient Portal/API
[2024-03-02 14:46] LABS: Troponin I < 0.012 ng/mL (0.01-0.034)
[2024-03-02] MEDS: FLUORESCEIN 1 MG STRIP EYE-BOTH (15:07)
[2024-03-02] MEDS: PROPARACAINE 0.5% OPHTH SOL 1 DROPS EYE-BOTH (15:07)
[2024-03-02] MEDS: APIXABAN 5 MG TABLET PO (16:00)
== END 2024-03-02 16:11 | disposition home or self-care (01) ==
PROVIDERS: Emergency Provider Emergency Medicine; PCP Physician Assistant
DX: H53.2 Diplopia (principal); R51.9 Headache, unspecified; Z79.01 Long term (current) use of anticoagulants
CPT/HCPCS: 36415; 70450; 70496; 70498; 71045; 80053; 82550; 82962; 83735; 84484; 85025; 85610; 85730; 93005; 93010; 99284; Q9967

== ENCOUNTER → 2024-10-20 10:38 | Outpatient (CLI) | payer MEDICARE, OTHER, SELFPAY ==
[2024-10-20 11:00] LABS: Add Manual Diff / Slide Review NO; Basophils Absolute Auto 0 /uL (0-100); Basophils Percent Auto 0.5 % (0-2); Eosinophils Absolute Auto 200 /uL (0-450); Eosinophils Percent Auto 4.6 % (2-4); Hematocrit 42.2 % (36-46); Hemoglobin 14.1 g/dL (12.0-16.0); Lymphocytes Absolute Auto 1400 /uL (1100-4500); Lymphocytes Percent Auto 26.2 % (25-40); Mean Corpuscular HGB Conc 33.4 % (30-36); Mean Corpuscular Hemoglobin 29.9 PG (26-34); Mean Corpuscular Volume 89.7 fL (80-100); Monocytes Absolute Auto 400 /uL (0-900); Monocytes Percent Auto 8.3 % (3-14); Neutrophils Absolute Auto 3200 /uL (1500-7000); Neutrophils Percent Auto 60.4 % (50-75); Platelet Count 270 X10^3/uL (150-400); Red Blood Cell Count 4.71 X10^6/uL (4.0-5.2); Red Cell Distribution Width 13.5 % (11.6-14.8); White Blood Cell Count 5.4 X10^3/uL (4.5-11.0)
[2024-10-20 11:18] LABS: Alanine Aminotransferase 26 IU/L (<35); Albumin 4.3 g/dL (3.5-5.0); Albumin Globulin Ratio 1.8 (1.0-2.8); Alkaline Phosphatase 70 U/L (38-126); Aspartate Aminotransferase 34 IU/L (14-36); BUN Creatinine Ratio 24.2 (6-22); Bilirubin Total 1.1 mg/dL (0.2-1.3); Blood Urea Nitrogen 15 mg/dL (7-17); Calcium 9.4 mg/dL (8.4-10.2); Carbon Dioxide 30 mmol/L (22-32); Chloride 103 mmol/L (98-107); Cholesterol 196 mg/dL (140-199); Estimated Glomerular Filt Rate > 60 mL/min (>60); Globulin 2.4 g/dL (1.7-4.1); Glucose 88 mg/dL (70-99); HDL Cholesterol 82 mg/dL (40-60); HEMOLYSIS < 15 (0-50); LDL Cholesterol Calculated 91 mg/dL (<100); Potassium 4.5 mmol/L (3.4-5.1); Sodium 139 mmol/L (137-145); Total Protein 6.7 g/dL (6.3-8.2); Triglycerides 116 mg/dL (35-150)
[2024-10-20 11:41] LABS: Vitamin D 25 Hydroxy (D3) 50.5 ng/mL (30.0-100.0)
== END ==
PROVIDERS: PCP Family Medicine; Referring Provider Family Medicine; Visit Provider Family Medicine
DX: E78.2 Mixed hyperlipidemia (principal); Z79.01 Long term (current) use of anticoagulants; M81.0 Age-related osteoporosis without current pathological fracture; R39.89 Other symptoms and signs involving the genitourinary system; I48.0 Paroxysmal atrial fibrillation
CPT/HCPCS: 36415; 80053; 80061; 82306; 85025; 87086

== ENCOUNTER → 2024-12-08 11:42 | Outpatient (CLI) | payer MEDICARE, OTHER, SELFPAY ==
[2024-12-08 19:00] LABS: HEMOLYSIS < 15 (0-50); Iron 122 ug/dL (37-170)
[2024-12-08 19:15] LABS: Percent Iron Saturation 33 % (15-50); Total Iron Binding Capacity 366 ug/dL (265-497); Transferrin 312 mg/dL (206-381)
[2024-12-08 19:25] LABS: Ferritin 15 ng/mL (11-264)
[2024-12-08 19:29] LABS: Thyroid Stimulating Hormone 1.19 uIU/mL (0.47-4.68)
[2024-12-08 19:48] LABS: Vitamin B12 352 pg/mL (239-931)
== END ==
PROVIDERS: PCP Family Medicine; Visit Provider Family Medicine
DX: E53.8 Deficiency of other specified B group vitamins (principal); R53.83 Other fatigue; K50.90 Crohn's disease, unspecified, without complications; Z86.2 Personal history of diseases of the blood and blood-forming organs and certain disorders involving the immune mechanism; Z86.39 Personal history of other endocrine, nutritional and metabolic disease
CPT/HCPCS: 82607; 82728; 83540; 83550; 84443

== ENCOUNTER → 2025-04-13 10:40 | Outpatient (CLI) | payer MEDICARE, OTHER, SELFPAY ==
--- NOTE | 2025-04-13 | DI.RAD.S_ITS ---
PROCEDURE: XR KNEE LT 3V INDICATIONS: LE PAIN TECHNIQUE: 3 views of the knee were acquired. COMPARISON: None. FINDINGS: Bones: There are no osseous abnormalities. Joints: Mild/moderate patellofemoral tibiofemoral degenerative change appreciated. Small suprapatellar effusion Soft tissues: Normal IMPRESSION: Degeneration . Dictated by: Dileep Yeboah M.D. on 04/14/2025 at 12:56 Approved by: Dileep Yeboah M.D. on 04/14/2025 at 12:56
--- NOTE | 2025-04-13 | DI.RAD.S_ITS ---
PROCEDURE: XR TIBIA FIBULA LT 2V INDICATIONS: LE PAIN TECHNIQUE: 2 views of the tibia and fibula were acquired. COMPARISON: None. FINDINGS: Bones: There are no osseous abnormalities Joints: Mild patellofemoral and medial tibial femoral degeneration appreciated. Ankle mortise and talocalcaneal joints are normal . Soft tissues: No soft tissue abnormality. IMPRESSION: Degeneration Dictated by: Dileep Yeboah M.D. on 04/14/2025 at 12:57 Approved by: Dileep Yeboah M.D. on 04/14/2025 at 12:57
[2025-04-13 12:31] LABS: Add Manual Diff / Slide Review NO; Hematocrit 40.7 % (36-46); Hemoglobin 13.8 g/dL (12.0-16.0); Lymphocytes Absolute Auto 1500 /uL (1100-4500); Mean Corpuscular HGB Conc 33.8 % (30-36); Mean Corpuscular Hemoglobin 30.0 PG (26-34); Mean Corpuscular Volume 88.7 fL (80-100); Platelet Count 271 X10^3/uL (150-400)
[2025-04-13 12:54] LABS: Blood Urea Nitrogen 17 mg/dL (7-17); Calcium 9.3 mg/dL (8.4-10.2); Carbon Dioxide 27 mmol/L (22-32); Chloride 101 mmol/L (98-107); Estimated Glomerular Filt Rate > 60 mL/min (>60); Glucose 87 mg/dL (70-99); HEMOLYSIS < 15 (0-50); Potassium 4.3 mmol/L (3.4-5.1); Sodium 137 mmol/L (137-145)
[2025-04-13 13:25] LABS: Ferritin 37 ng/mL (11-264)
== END ==
PROVIDERS: Internal Medicine Cardiovascular Disease; PCP Family Medicine; Referring Provider Family Medicine; Visit Provider Family Medicine
DX: R79.0 Abnormal level of blood mineral (principal); I48.0 Paroxysmal atrial fibrillation; M25.562 Pain in left knee; M79.669 Pain in unspecified lower leg; Z78.9 Other specified health status; M17.0 Bilateral primary osteoarthritis of knee
CPT/HCPCS: 36415; 73562; 73590; 80048; 82728; 85025

== ENCOUNTER → 2025-06-27 11:01 | Outpatient (CLI) | payer MEDICARE, OTHER, SELFPAY ==
--- NOTE | 2025-06-27 11:03 | DI.RAD.S_ITS ---
PROCEDURE: XR KNEE RT 3V INDICATIONS: knee pain TECHNIQUE: 3 views of the knee were acquired. COMPARISON: [facility], CR, XR KNEE LT 3V, 04/13/2025, 10:59. FINDINGS: Bones: No fractures or dislocations. No suspicious bony lesions. Soft tissues: No joint effusion. No suspicious soft tissue calcifications. IMPRESSION: No acute bony abnormality or significant effusion. If symptoms persist with conservative management, consider cross-sectional imaging such as CT or MRI. Approved by: Kaitlyn Ochoa M.D.,Ph.D. on 06/27/2025 at 11:48
== END ==
PROVIDERS: PCP Family Medicine; Referring Provider Family Medicine; Visit Provider Physician Assistant Medical
DX: M25.569 Pain in unspecified knee (principal)
CPT/HCPCS: 73562